=== PATIENT | female | born 1975 | race Caucasian/White ===

== ENCOUNTER → 2016-10-18 | Outpatient (CLI) | payer BC ==
[~2016-10-18] MED LIST: ATIVAN 0.50.5 MG/TAB PO; BCP TD; MOTRIN 600600 MG/TAB PO; NASACORT AQ N16.5 GM NS; NASONEX SPRAY17 GM NS; NORCO 325 MG-7.1 TAB PO; SUDAFED 30M30 MG/TAB PO; ZOFRAN 4MG T4 MG/TAB PO; ZOLOFT 50MG50 MG PO; ZYRTEC 10MG10 MG PO; ZYRTEC-D 12HR 51 TER PO
== END ==
LOC: COL.RAD 07:21
DX: R42 Dizziness and giddiness (principal); S09.90XA Unspecified injury of head, initial encounter
CPT/HCPCS: A9585

== ENCOUNTER → 2018-01-11 | Outpatient (CLI) | payer BC | LOC: MC.RAD 12-05 11:00 | DX: Z12.31 Encounter for screening mammogram for malignant neoplasm of breast (principal) ==

== ENCOUNTER → 2019-02-08 | Outpatient (CLI) | payer BC | LOC: MC.RAD 11:26 | DX: Z12.31 Encounter for screening mammogram for malignant neoplasm of breast (principal) ==

== ENCOUNTER → 2020-03-31 | Outpatient (CLI) | payer BC | LOC: MC.RAD 12:58 | DX: Z12.31 Encounter for screening mammogram for malignant neoplasm of breast (principal) ==

== ENCOUNTER → 2021-04-15 | Outpatient (CLI) | payer BC | LOC: MC.RAD 15:06 | DX: Z12.31 Encounter for screening mammogram for malignant neoplasm of breast (principal) ==

== ENCOUNTER → 2022-05-04 | Outpatient (CLI) | payer OTHER | LOC: MHCPAIN 15:56 | DX: M54.2 Cervicalgia (principal); M79.18 Myalgia, other site; G54.0 Brachial plexus disorders | CPT/HCPCS: G0463 ==

== ENCOUNTER → 2022-06-15 | Outpatient (CLI) | payer OTHER | LOC: MHCPAIN 15:47 | DX: M54.2 Cervicalgia (principal); M79.18 Myalgia, other site; G54.0 Brachial plexus disorders; R42 Dizziness and giddiness | CPT/HCPCS: G0463 ==

== ENCOUNTER → 2023-01-23 | Outpatient (CLI) | payer OTHER | LOC: MHCPAIN 15:27 | DX: M54.6 Pain in thoracic spine (principal); G54.0 Brachial plexus disorders | CPT/HCPCS: G0463 ==